=== PATIENT | male | born 1970 | race Caucasian/White ===

== ENCOUNTER 2019-01-07 14:51 | Emergency (ER) | payer SELFPAY ==
[~2019-01-07] VITALS: Ht 167.6 cm; Wt 60.7 kg
[2019-01-07 16:10] LABS: BASO % 0.3 % (0.0-1.0); HEMATOCRIT 48.9 % (42.0-52.0); LYMPH # 1.1 10^3/uL (1.5-5.0); LYMPH % 10.5 % (24.0-44.0); MEAN CORPUSCULAR HEMOGLOBIN 30.7 pg (27.0-33.0); MEAN CORPUSCULAR HGB CONC 34.8 g/dl (32.0-36.5); MEAN CORPUSCULAR VOLUME 88.3 fl (80.0-96.0); MONO # 0.5 10^3/uL (0.0-0.8); NEUTROPHILS # 8.9 10^3/uL (1.5-8.5); NEUTROPHILS % 83.9 % (36.0-66.0); PLATELET COUNT, AUTOMATED 345 10^3/uL (150-450); RED BLOOD COUNT 5.54 10^6/uL (4.30-6.10); WHITE BLOOD COUNT 10.6 10^3/uL (4.0-10.0)
[2019-01-07 16:46] LABS: BLOOD UREA NITROGEN 17 MG/DL (7-18); CALCIUM LEVEL 9.7 MG/DL (8.5-10.1); CARBON DIOXIDE LEVEL 26 MEQ/L (21-32); CHLORIDE LEVEL 103 MEQ/L (98-107); CK-MB VALUE MASS < 1.0 NG/ML (<3.6); CPK CREATINE PHOSPHOKINASE 111 U/L (39-308); CREATININE FOR GFR 1.11 MG/DL (0.70-1.30); GLOMERULAR FILTRATION RATE > 60.0 (>60); GLUCOSE, FASTING 106 MG/DL (70-100); MAGNESIUM LEVEL 2.1 MG/DL (1.8-2.4); POTASSIUM SERUM 3.8 MEQ/L (3.5-5.1); SODIUM LEVEL 139 MEQ/L (136-145); TROPONIN I < 0.02 NG/ML (< 0.10)
[2019-01-07] MEDS ORDERED: HYDR-3363 PO (17:33)
[2019-01-07 17:40] VITALS: BP 141/79
--- NOTE | 2019-01-07 20:50 | ECGEPIP ---
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
== END 2019-01-07 17:40 | disposition home or self-care (01) ==
LOC: M ED 14:51
DX: F41.9 Anxiety disorder, unspecified (principal); R53.1 Weakness